=== PATIENT | female | born 1995 | race Caucasian/White ===

== ENCOUNTER 2025-01-16 16:11 | Outpatient (CLI) | payer OTHER, SELFPAY | END 2025-01-16 16:12 | disposition home or self-care (01) | LOC: NFLDREF 01-18 06:45 | PROVIDERS: Visit Provider Physician Assistant | DX: L03.818 Cellulitis of other sites (principal); B95.61 Methicillin susceptible Staphylococcus aureus infection as the cause of diseases classified elsewhere | CPT/HCPCS: 87070; 87186 ==